=== PATIENT | female | born 1960 | race Caucasian/White ===

== ENCOUNTER 2016-12-06 16:44 | Emergency (ER) | payer MEDICARE, MEDICAID ==
[2016-12-06] MEDS ORDERED: Ondansetron ODT TAB* 4 MG PO ONE (18:13)
[2016-12-06] MEDS ORDERED: NS 0.9% 1000 ML* 1,000 ML IV ONE (18:24)
--- NOTE | 2016-12-06 18:36 | RAD ---
HISTORY: Pain, fall from stool, left wrist and forearm pain COMPARISONS: None VIEWS: 4, Frontal, lateral, and oblique views of the left wrist FINDINGS: BONE DENSITY: There is diffuse osteopenia. BONES: There is a nondisplaced fracture of the distal radial epiphysis with articular extension. JOINTS: There is no arthropathy. ALIGNMENT: There is no dislocation. SOFT TISSUES: Unremarkable. OTHER FINDINGS: None. IMPRESSION: OSTEOPENIA. NONDISPLACED FRACTURE OF THE DISTAL RADIUS WITH ARTICULAR EXTENSION
--- NOTE | 2016-12-06 18:38 | RAD ---
HISTORY: Fall, left forearm pain COMPARISONS: None VIEWS: 4, Frontal, lateral, and oblique views of the left elbow FINDINGS: BONE DENSITY: There is diffuse osteopenia. BONES: There is no displaced fracture. JOINTS: There is mild osteoarthritis of the radial-humeral and ulnar humeral articulations. There is no posterior supracondylar fat pad to suggest a joint effusion. ALIGNMENT: There is no dislocation. SOFT TISSUES: Unremarkable. OTHER FINDINGS: A vascular stent is noted. IMPRESSION: 1. OSTEOPENIA. 2. OSTEOARTHRITIS. 3. NO ACUTE OSSEOUS INJURY. THE DEGREE OF OSTEOPENIA MAY MAKE A NONDISPLACED FRACTURE RADIOGRAPHICALLY OCCULT. IF SYMPTOMS PERSIST, RECOMMEND REPEAT IMAGING.
--- NOTE | 2016-12-06 18:43 | RAD ---
HISTORY: Trauma, left wrist and forearm pain COMPARISONS: August 14, 2009, left wrist dated December 06, 2016 VIEWS: 2, Frontal and lateral views of the left hand FINDINGS: BONE DENSITY: There is diffuse osteopenia. BONES: There is a linear lucency consistent with a nondisplaced fracture of the middle phalanx of the third digit of the left hand . Again noted is a nondisplaced fracture of the distal radius JOINTS: There is no arthropathy. ALIGNMENT: There is no dislocation. SOFT TISSUES: Unremarkable. OTHER FINDINGS: None. IMPRESSION: OSTEOPENIA. PROBABLE NONDISPLACED FRACTURE OF THE MIDDLE PHALANX OF THE THIRD DIGIT OF THE LEFT HAND. RECOMMEND CORRELATION WITH SITE OF PAIN. AGAIN NOTED IS A FRACTURE OF THE DISTAL RADIUS
--- NOTE | 2016-12-06 18:44 | RAD ---
HISTORY: Shortness of breath, cough COMPARISONS: March 16, 2016 VIEWS:1: Single frontal portable view of the chest at 6:23 PM FINDINGS: LINES AND TUBES: None. CARDIOMEDIASTINAL SILHOUETTE: The cardiomediastinal silhouette is normal for portable technique. PLEURA: The costophrenic angles are sharp. No pleural abnormalities are noted. LUNG PARENCHYMA: The lungs are clear. ABDOMEN: The upper abdomen is clear. There is no subphrenic gas. BONES AND SOFT TISSUES: The patient is status post anterior cervical fusion. Surgical clips are noted in the left axilla IMPRESSION: NO ACTIVE CARDIOPULMONARY DISEASE.
[2016-12-06 19:05] LABS: Hematocrit 39 % (35-47); Hemoglobin 12.4 g/dl (12.0-16.0); Mean Corpuscular HGB Conc 32 g/dl (31-36); Mean Corpuscular Hemoglobin 31 pg (27-31); Mean Corpuscular Volume 95 fL (80-97); Mean Platelet Volume 8 um3 (7.4-10.4); Red Blood Count 4.04 10^6/ul (4.0-5.4); Red Cell Distribution Width 15 % (10.5-15); White Blood Count 11.4 10^3/ul (3.5-10.8)
[2016-12-06] MEDS: Morphine INJ* 10 MG/ML 1 ML CARPUJECT IV ONE ×2 (19:10→19:25)
[2016-12-06] MEDS ORDERED: Ondansetron INJ* 2 MG/ML VIAL ONE (19:13)
[2016-12-06 19:15] LABS: ALT 9 U/L (7-52); AST 15 U/L (13-39); Albumin 3.6 g/dL (3.2-5.2); Alkaline Phosphatase 102 U/L (34-104); Anion Gap 9 mmol/L (2-11); Blood Urea Nitrogen 40 mg/dL (6-24); C Reactive Protein 23.27 mg/L (< 5.00); CO2 Carbon Dioxide 21 mmol/L (22-32); Calcium 9.1 mg/dL (8.6-10.3); Chloride 109 mmol/L (101-111); EGFR African American 11.7 (>60); EGFR Non-African American 9.1 (>60); Globulin 3.1 g/dL (2-4); Glucose 99 mg/dL (70-100); Potassium 3.3 mmol/L (3.5-5.0); Sodium 139 mmol/L (133-145); Total Protein 6.7 g/dL (6.4-8.9)
[2016-12-06 19:19] LABS: Acetaminophen < 15 mcg/mL; Alcohol < 10 mg/dL (<10); Salicylate < 2.50 mg/dL (<30)
[2016-12-06] MEDS ORDERED: Ondansetron INJ* 2 MG/ML VIAL IV ONE (19:24)
[2016-12-06] MEDS ORDERED: levETIRAcetam TAB* 500 MG PO ONE (19:26)
[2016-12-06 19:29] LABS: TSH (Thyroid Stimulating Horm) 1.22 mcIU/mL (0.34-5.60)
[2016-12-06] MEDS ORDERED: Potassium Chlor TAB* 20 MEQ TAB.ER PO ONE (19:37)
[2016-12-06 19:40] LABS: Urine Bacteria Absent (Absent); Urine Bilirubin Negative (Negative); Urine Glucose Negative (Negative); Urine Nitrite Positive (Negative)
[2016-12-06 19:51] LABS: Benzodiazepine Urine Screen None Detected (None Detect)
[2016-12-06] MEDS ORDERED: Nitrofurantoin Macrocrystals* 100 MG CAP PO ONE (19:52)
[2016-12-06] MEDS ORDERED: HYDROmorphone INJ* 1 MG/ML CARPUJECT SYRINGE IV SLOW PU ONE (19:59)
--- NOTE | 2016-12-06 20:05 | ED ---
I, Oh,Sohodan, scribed for Reno Marquez MD on 12/06/16 at 1814 . Neurological HPI - HPI Summary HPI Summary: This 55 y/o female presents to ED via EMS after a fall from stool [employer]. Pt states that she was hanging something up the wall, but did not recall the fall. She also reports being noncompliant with her Keppra since 3 days ago, and expresses concern that she might have had an unwitnessed seizure. She does not recall the strength of her keppra. She is currently complaining of LUE forearm pain, which is currently in sling administered by EMS [employer]. PMHx includes HLD, polycystic kidney disease, kidney failure with daily dialysis and LUE fistula, and brain aneurysm. Pt reports that her last dialysis was yesterday. - History of Current Complaint Chief Complaint: EDSeizure Stated Complaint: PAIN IN LT FORE ARM Time Seen by Provider: 12/06/16 17:25 Hx Obtained From: Patient Onset/Duration: Sudden Onset, Still Present Timing: Intermittent Episodes Lasting: Onset Severity: Moderate Current Severity: None Seizure Severity: Moderate Pain Intensity: 10 Pain Scale Used: 0-10 Numeric Character: Unable To Describe - Additional Pertinent History Primary Care Physician: [id number] - Allergy/Home Medications Allergies/Adverse Reactions: Allergies Allergy/AdvReac Type Severity Reaction Status Date / Time Sulfa Drugs Allergy Unknown Unknown Verified 11/12/16 15:29 Reaction Details Fentanyl Allergy STOPPED Verified 11/12/16 15:29 BREATHING NSAIDs AdvReac Severe See Comment Verified 11/12/16 15:29 PMH/Surg Hx/FS Hx/Imm Hx Endocrine/Hematology History: Reports: Hx Thyroid Disease Denies: Hx Diabetes, Hx Systemic Lupus Erythematosus, Other Endocrine/ Hematological Disorders Cardiovascular History: Reports: Hx Aneurysm, Hx Hypercholesterolemia, Hx Hypertension, Hx Valvular Heart Disease - history of Mitral Valve disorder, Other Cardiovascular Problems/Disorders - PT STATES HAS "SOME KIND OF HEART DISEASE" Denies: Hx Congestive Heart Failure, Hx Pacemaker/ICD Respiratory History: Reports: Other Respiratory Problems/Disorders - HX OF TRACHEOSTOMY 01/2013 GI History: Reports: Hx Gall Bladder Disease - gallbladder removed, Other GI Disorders - Polycystic Liver History: Reports: Hx Acute Renal Failure, Hx Chronic Renal Failure, Hx Dialysis, Hx Kidney Infection - HX OF, Hx Kidney Stones, Hx Renal Disease - polycystic kidney disease Comment Only: Other Problems/Disorders - Polycystic Kidney Disease Musculoskeletal History: Reports: Hx Back Problems, Hx Orthopedic Injury - Hx fractured left arm and right leg. Fractured vertebrae, Other Musculoskeletal History - cervical fusion Denies: Hx Arthritis, Hx Rheumatoid Arthritis, Hx Osteoporosis Sensory History: Reports: Hx Contacts or Glasses - GLASSES Denies: Hx Hearing Aid, Other Sensory Impairments Opthamlomology History: Reports: Hx Contacts or Glasses - GLASSES Denies: Other Sensory Impairments Neurological History: Reports: Hx Headaches - OCCASIONAL, Hx Migraine - no longer has migraines, Hx Seizures, Other Neuro Impairments/Disorders - BRAIN ANEURSYM - 2006 Psychiatric History: Reports: Hx Anxiety, Hx Depression - PAST SUICIDE ATTEMPTS , Hx Inpatient Treatment, Hx Suicide Attempt - 06/2015 with [facility] admit, Hx Substance Abuse - 1981 tried cocaine Denies: Hx Eating Disorder, Hx Panic Disorder, Hx of Violent Episodes Against Others, Other Psychiatric Issues/Disorders - Cancer History Hx Chemotherapy: No - iv antibiotic therapy at home Hx Radiation Therapy: No - Surgical History Surgery Procedure, Year, and Place: 2006 BRAIN ANEURSYM [facility].5 PER [facility]. 2011 ORIF LEFT ELBOW- [facility]. 1994 RIGHT LEG/ANKLE FX [facility]. 01/2013 REMOVAL OF HARDWARE LEFT ELBOW ; [facility]. PD [facility] DIALYSIS 06/2016. 1994 BLADDER SLING [facility]. 2003, 2005 LIVER CYST REMOVAL [facility]. 1969 APPENDECTOMY, [facility]. TONSILLECTOMY A CHILD [facility]. 1991 LAP PAIGE [facility] 2006 KIDNEY STONES [facility]. 2006 R OOPHERECTOMY [place]. 1999 ACDF [facility]. 01/2013 TRACHEOSTOMY, [facility]. 2014 CYSTO, LITHO [facility]. 2013 L ARM FISTULA X3 [facility] Hx Anesthesia Reactions: No Infectious Disease History: Yes Infectious Disease History: Reports: Hx of Known/Suspected MRSA - lungs - 13 yrs ago Denies: History Other Infectious Disease, Traveled Outside the [place] in Last 30 Days - Family History Known Family History: Positive: Renal Disease - polycystic kidney - Social History Alcohol Use: None Hx Substance Use: Yes Substance Use Type: Reports: Other Substance Use Comment - Amount & Last Used: HX ETOH AND DRUG ABUSE, takes morphine and oxycodone, overdose 06/2015 Hx Tobacco Use: Yes Smoking Status (MU): Current Some Day Smoker Type: Cigarettes Amount Used/How Often: VERY RARELY Length of Time of Smoking/Using Tobacco: 15 YRS Have You Smoked in the Last Year: Yes Review of Systems Negative: Fever Neurological: Other - possible, unwitnessed seizure Negative: Anxious, Depressed All Other Systems Reviewed And Are Negative: Yes Physical Exam - Summary Physical Exam Summary: VITAL SIGNS: Reviewed. GENERAL: Patient is a well developed and nourished female with acute distress secondary to pain. Patient is not in any acute respiratory distress. HEAD AND FACE: No signs of trauma. No ecchymosis, hematomas or skull depressions. No sinus tenderness. EYES: PERRLA, EOMI x 2, No injected conjunctiva, no nystagmus. No photophobia. EARS: Hearing grossly intact. Ear canals and tympanic membranes are within normal limits. MOUTH: Oropharynx within normal limits. NECK: Supple, trachea is midline, no adenopathy, no JVD, no carotid bruit, no c- spine tenderness, neck with full ROM. No meningeal signs, no Kernig's or brudzinskis signs. CHEST: Symmetric, no tenderness at palpation LUNGS: Clear to auscultation bilaterally. No wheezing or crackles. CVS: Regular rate and rhythm, S1 and S2 present, no murmurs or gallops appreciated. ABDOMEN: Soft, non-tender. No signs of distention. No rebound no guarding, and no masses palpated. Bowel sounds are normal. EXTREMITIES: decreased ROM in left elbow and left forearm secondary to pain NEURO: Alert and oriented x 3. No acute neurological deficits. Speech is normal and follows commands. SKIN: Dry and warm Triage Information Reviewed: Yes Vital Signs On Initial Exam: Initial Vitals Temp Pulse Resp BP Pulse Ox 99.2 F 120 18 153/68 99 12/06/16 17:07 12/06/16 17:07 12/06/16 17:07 12/06/16 17:07 12/06/16 17:07 Vital Signs Reviewed: Yes Diagnostics - Vital Signs Vital Signs Temp Pulse Resp BP Pulse Ox 12/06/16 17:07 99.2 F 120 18 153/68 99 - Laboratory Lab Results: Lab Results 12/06/16 12/06/16 12/06/16 Range/Units 18:50 18:50 19:29 WBC 11.4 H (3.5-10.8) 10^3/ul RBC 4.04 (4.0-5.4) 10^6/ul Hgb 12.4 (12.0-16.0) g/dl Hct 39 (35-47) % MCV 95 (80-97) fL MCH 31 (27-31) pg MCHC 32 (31-36) g/dl RDW 15 (10.5-15) % Plt Count 333 (150-450) 10^3/ul MPV 8 (7.4-10.4) um3 Neut % (Auto) 78.9 (38-83) % Lymph % (Auto) 14.1 L (25-47) % Robeson % (Auto) 5.8 (1-9) % Eos % (Auto) 0.3 (0-6) % Baso % (Auto) 0.9 (0-2) % Absolute Neuts (auto) 9.0 H (1.5-7.7) 10^3/ul Absolute Lymphs (auto) 1.6 (1.0-4.8) 10^3/ul Absolute Monos (auto) 0.7 (0-0.8) 10^3/ul Absolute Eos (auto) 0 (0-0.6) 10^3/ul Absolute Basos (auto) 0.1 (0-0.2) 10^3/ul Absolute Nucleated RBC 0 10^3/ul Nucleated RBC % 0 Sodium 139 (133-145) mmol/L Potassium 3.3 L (3.5-5.0) mmol/L Chloride 109 (101-111) mmol/L Carbon Dioxide 21 L (22-32) mmol/L Anion Gap 9 (2-11) mmol/L BUN 40 H (6-24) mg/dL Creatinine 4.98 H (0.51-0.95) mg/dL Est GFR ( Amer) 11.7 (>60) Est GFR (Non-Af Amer) 9.1 (>60) BUN/Creatinine Ratio 8.0 (8-20) Glucose 99 (70-100) mg/dL Calcium 9.1 (8.6-10.3) mg/dL Total Bilirubin 0.30 (0.2-1.0) mg/dL AST 15 (13-39) U/L ALT 9 (7-52) U/L Alkaline Phosphatase 102 (34-104) U/L C-Reactive Protein 23.27 H (< 5.00) mg/L Total Protein 6.7 (6.4-8.9) g/dL Albumin 3.6 (3.2-5.2) g/dL Globulin 3.1 (2-4) g/dL Albumin/Globulin Ratio 1.2 (1-3) TSH 1.22 (0.34-5.60) mcIU/mL Urine Color Yellow Urine Appearance Cloudy Urine pH 6.0 (5-9) Ur Specific Stringer 1.011 (1.010-1.030) Urine Protein 1+(30 mg/dl) H (Negative) Urine Ketones Negative (Negative) Urine Blood 1+ H (Negative) Urine Nitrate Positive H (Negative) Urine Bilirubin Negative (Negative) Urine Urobilinogen Negative (Negative) Ur Leukocyte Esterase 3+ H (Negative) Urine WBC (Auto) 3+(>20/hpf) H (Absent) Urine RBC (Auto) 1+(3-5/hpf) H (Absent) Ur Squamous Epith Cells Present H (Absent) Urine Bacteria Absent (Absent) Urine Glucose Negative (Negative) Salicylates < 2.50 (<30) mg/dL Urine Opiates Screen (None Detect) Acetaminophen < 15 mcg/mL Ur Barbiturates Screen (None Detect) Ur Phencyclidine Scrn (None Detect) Ur Amphetamines Screen (None Detect) U Benzodiazepines Scrn (None Detect) Urine Cocaine Screen (None Detect) U Cannabinoids Screen (None Detect) Serum Alcohol < 10 (<10) mg/dL 12/06/16 Range/Units 19:29 WBC (3.5-10.8) 10^3/ul RBC (4.0-5.4) 10^6/ul Hgb (12.0-16.0) g/dl Hct (35-47) % MCV (80-97) fL MCH (27-31) pg MCHC (31-36) g/dl RDW (10.5-15) % Plt Count (150-450) 10^3/ul MPV (7.4-10.4) um3 Neut % (Auto) (38-83) % Lymph % (Auto) (25-47) % Robeson % (Auto) (1-9) % Eos % (Auto) (0-6) % Baso % (Auto) (0-2) % Absolute Neuts (auto) (1.5-7.7) 10^3/ul Absolute Lymphs (auto) (1.0-4.8) 10^3/ul Absolute Monos (auto) (0-0.8) 10^3/ul Absolute Eos (auto) (0-0.6) 10^3/ul Absolute Basos (auto) (0-0.2) 10^3/ul Absolute Nucleated RBC 10^3/ul Nucleated RBC % Sodium (133-145) mmol/L Potassium (3.5-5.0) mmol/L Chloride (101-111) mmol/L Carbon Dioxide (22-32) mmol/L Anion Gap (2-11) mmol/L BUN (6-24) mg/dL Creatinine (0.51-0.95) mg/dL Est GFR ( Amer) (>60) Est GFR (Non-Af Amer) (>60) BUN/Creatinine Ratio (8-20) Glucose (70-100) mg/dL Calcium (8.6-10.3) mg/dL Total Bilirubin (0.2-1.0) mg/dL AST (13-39) U/L ALT (7-52) U/L Alkaline Phosphatase (34-104) U/L C-Reactive Protein (< 5.00) mg/L Total Protein (6.4-8.9) g/dL Albumin (3.2-5.2) g/dL Globulin (2-4) g/dL Albumin/Globulin Ratio (1-3) TSH (0.34-5.60) mcIU/mL Urine Color Urine Appearance Urine pH (5-9) Ur Specific Stringer (1.010-1.030) Urine Protein (Negative) Urine Ketones (Negative) Urine Blood (Negative) Urine Nitrate (Negative) Urine Bilirubin (Negative) Urine Urobilinogen (Negative) Ur Leukocyte Esterase (Negative) Urine WBC (Auto) (Absent) Urine RBC (Auto) (Absent) Ur Squamous Epith Cells (Absent) Urine Bacteria (Absent) Urine Glucose (Negative) Salicylates (<30) mg/dL Urine Opiates Screen None detected (None Detect) Acetaminophen mcg/mL Ur Barbiturates Screen None detected (None Detect) Ur Phencyclidine Scrn None detected (None Detect) Ur Amphetamines Screen None detected (None Detect) U Benzodiazepines Scrn None detected (None Detect) Urine Cocaine Screen None detected (None Detect) U Cannabinoids Screen None detected (None Detect) Serum Alcohol (<10) mg/dL Result Diagrams: 12/06/16 18:50 12/06/16 18:50 Lab Statement: Any lab studies that have been ordered have been reviewed, and results considered in the medical decision making process. - Radiology L Wrist Xray Interpretation: Positive (See Comments) - OSTEOPENIA. NONDISPLACED FRACTURE OF THE DISTAL RADIUS WITH ARTICULAR EXTENSION Radiology Interpretation Completed By: Radiologist L Elbow Xray Interpretation: No Acute Changes - 1. OSTEOPENIA. 2. OSTEOARTHRITIS. 3. NO ACUTE OSSEOUS INJURY. THE DEGREE OF OSTEOPENIA MAY MAKE A NONDISPLACED FRACTURE RADIOGRAPHICALLY OCCULT. IF SYMPTOMS PERSIST, RECOMMEND REPEAT IMAGING. Radiology Interpretation Completed By: Radiologist L Hand Xray Interpretation: Positive (See Comments) - OSTEOPENIA. PROBABLE NONDISPLACED FRACTURE OF THE MIDDLE PHALANX OF THE THIRD DIGIT OF THE LEFT HAND. RECOMMEND CORRELATION WITH SITE OF PAIN. AGAIN NOTED IS A FRACTURE OF THE DISTAL RADIUS Radiology Interpretation Completed By: Radiologist CXR Xray Interpretation: No Acute Changes - NO ACTIVE CARDIOPULMONARY DISEASE. Radiology Interpretation Completed By: Radiologist Course/Dx - Course Assessment/Plan: This 55 y/o female presents to ED via EMS after a fall from stool [employer]. Pt states that she was hanging something up the wall, but did not recall the fall. She thinks she had a seizure since she has not been taking her medication for seizures. She does not know why she has not been taking her medications. She has no other complaints. Son called and stated that she had some suicidal ideation a couple days ago. Patient denied such allegations. She reports she has no suicidal ideations. Blood work at her baseline. L Wrist. Xray Interpretation: Positive (See Comments) - OSTEOPENIA. NONDISPLACED FRACTURE OF THE DISTAL RADIUS WITH ARTICULAR EXTENSION. Radiology Interpretation Completed By: Radiologist. L Elbow. Xray Interpretation: No Acute Changes - 1. OSTEOPENIA. 2. OSTEOARTHRITIS. 3. NO ACUTE OSSEOUS INJURY. THE DEGREE OF OSTEOPENIA MAY MAKE A NONDISPLACED FRACTURE RADIOGRAPHICALLY OCCULT. IF SYMPTOMS PERSIST, RECOMMEND REPEAT IMAGING. Radiology Interpretation Completed By: Radiologist. L Hand. Xray Interpretation: Positive (See Comments) - OSTEOPENIA. PROBABLE NONDISPLACED FRACTURE OF THE MIDDLE PHALANX OF THE THIRD DIGIT OF THE LEFT HAND. RECOMMEND CORRELATION WITH SITE OF PAIN. AGAIN NOTED IS A FRACTURE OF THE DISTAL RADIUS. Radiology Interpretation Completed By: Radiologist. CXR. Xray Interpretation: No Acute Changes - NO ACTIVE CARDIOPULMONARY DISEASE. Radiology Interpretation Completed By: Radiologist. An splint was placed with no complications. After splint she is still neurovascular intact. Splint was also placed in the left middle finger. She was Keppra for her seizures and recommends to be compliant to her medications/. She was given Nitrofurantoin for UTI. She was given morphine and Dilaudid for pain. I discussed all my findings and test results with the patient. Patient understands and agrees. Patient was instructed to return to the emergency room immediately if any of the symptoms return or worsens. Patient understands and agrees. Plan of care was discussed with the patient and patient understands and agrees with the plan of care. All questions were answered at patient satisfaction. There were no further complaints or concerns. Patient was instructed to follow up with primary care physician within 3 to 5 days. Patient is hemodynamically stable. Patient is alert and oriented x 3. No acute neurological deficits. She will also f/u with Orthopedics. - Diagnoses Provider Diagnoses: Seizure, Distal radius fracture, left, CRF (chronic renal failure), UTI ( urinary tract infection) Discharge - Discharge Plan Condition: Stable Disposition: HOME Prescriptions: Nitrofurantoin Macrocrystals* [Macrodantin*] 100 mg PO BID #20 cap Patient Education Materials: Nitrofurantoin Macrocrystals (By mouth), Wrist Fracture in Adults (ED), Urinary Tract Infection in Women (ED), Recurrent Seizures in Adults (ED) Referrals: Dimitry Oleary MD [Primary Care Provider] - 2 Days The documentation as recorded by the Munir hernandez Soohyun accurately reflects the service I personally performed and the decisions made by , Reno Marquez MD. Addendum entered and electronically signed by Elisabeth Jeffrey PA 12/08/16 08: 17: ED Addendum Addendum: Preliminary urine culture E.coli >100,000. Patient started on macrobid. Will await final c/s to determine further course of care.
[2016-12-06] MEDS ORDERED: Ciprofloxacin TAB* 500 MG PO ONE (21:21)
[2016-12-06 21:38] VITALS: BP 154/99
--- NOTE | 2016-12-09 08:54 | ED ---
Progress - Progress Note Progress Note: Pt's urine c&s reveals ESBL E. coli. She was initially provided with macrobib however reported she couldn't take this so was switched to cipro. Pt reports cipro was not received at the pharmacy and so she hasn't started this yet. Her sens today reveals the organism is resistant to many antibiotivs including cipro. Will start doxycycline to which organims appears to be sensitive. This will keep her from taking an antibiotic cleared through renal function as she's on dialysis w/ ESRF. E-rx'd to [facility]. Pt adivsed to f/u w/ PCP re: UTI. NOTE: She has an appt tomorrow to f/u w/ ortho for an UE injury. Course/Dx - Diagnoses Provider Diagnoses: Seizure, Distal radius fracture, left, CRF (chronic renal failure), UTI ( urinary tract infection)
== END 2016-12-06 21:37 | disposition home or self-care (01) ==
LOC: ED 16:44
DX: S52.502A Unspecified fracture of the lower end of left radius, initial encounter for closed fracture (principal); N18.9 Chronic kidney disease, unspecified; N39.0 Urinary tract infection, site not specified; F17.210 Nicotine dependence, cigarettes, uncomplicated; E78.00 Pure hypercholesterolemia, unspecified; I10 Essential (primary) hypertension; E78.5 Hyperlipidemia, unspecified; Q61.3 Polycystic kidney, unspecified; Z99.2 Dependence on renal dialysis; Z88.2 Allergy status to sulfonamides; E07.9 Disorder of thyroid, unspecified; Z91.19 Patient's noncompliance with other medical treatment and regimen; G40.909 Epilepsy, unspecified, not intractable, without status epilepticus; W07.XXXA Fall from chair, initial encounter; Y92.9 Unspecified place or not applicable
CPT/HCPCS: 36415; 71010; 80053; 80307; 80320; 80329; 81003; 81015; 84443; 85025; 86140; 87077; 87086; 87186; 96374; 96375; 99284; A9270-GY; G0480; J1170; J2270; J2405

== ENCOUNTER 2017-03-15 19:28 | Emergency (ER) | payer MEDICARE, MEDICAID ==
[2017-03-15] MEDS ORDERED: Ondansetron INJ* 2 MG/ML VIAL IV ONE (19:38)
[2017-03-15] MEDS ORDERED: NS 0.9% 1000 ML* 1,000 ML IV ONE (19:38)
[2017-03-15] MEDS ORDERED: Morphine INJ* 4 MG/ML 1 ML SYRINGE IV ONE ×2 (19:38→21:23)
--- NOTE | 2017-03-15 20:24 | ED ---
I, Oh,Soohwilmanun, scribed for Genaro Chavez MD on 03/15/17 at 1943 . Abdominal Pain/Female - HPI Summary HPI Summary: This 56 y/o female presents to ED via [facility] with chief complaint of constant RLQ abd pain since last night. Pt reports chest pain, dyspnea, PACE, and increased burping. She also expresses concerns about yellow stool, and requesting stool culture. PMHx is significant for polycystic kidney dz, kidney failure with ongoing dialysis, HLD, HTN, and brain aneurysm s/p clipping. 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 Primary care involves Dr. Oleary. 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 - History of Current Complaint Stated Complaint: ABD PAIN Hx Obtained From: Patient, Medical Records Onset/Duration: Sudden Onset, Lasting Days, Still Present Timing: Constant Location: Discrete At: RLQ Radiates: No Character: Dull Aggravating Factor(s): Nothing Alleviating Factor(s): Nothing Associated Signs and Symptoms: Positive: Chest Pain, Other: - dyspnea Allergies/Adverse Reactions: Allergies Allergy/AdvReac Type Severity Reaction Status Date / Time Sulfa Drugs Allergy Unknown Unknown Verified 02/08/17 14:32 Reaction Details Fentanyl Allergy STOPPED Verified 02/08/17 14:32 BREATHING NSAIDs AdvReac Severe See Comment Verified 02/08/17 14:32 PMH/Surg Hx/FS Hx/Imm Hx Endocrine/Hematology History: Reports: Hx Thyroid Disease Denies: Hx Diabetes, Hx Systemic Lupus Erythematosus, Other Endocrine/ Hematological Disorders Cardiovascular History: Reports: Hx Aneurysm, Hx Hypercholesterolemia, Hx Hypertension, Hx Valvular Heart Disease - history of Mitral Valve disorder, Other Cardiovascular Problems/Disorders - PT STATES HAS "SOME KIND OF HEART DISEASE" Denies: Hx Congestive Heart Failure, Hx Pacemaker/ICD Respiratory History: Reports: Other Respiratory Problems/Disorders - HX OF TRACHEOSTOMY 01/2013 GI History: Reports: Hx Gall Bladder Disease - gallbladder removed, Other GI Disorders - Polycystic Liver History: Reports: Hx Acute Renal Failure, Hx Chronic Renal Failure, Hx Dialysis, Hx Kidney Infection - HX OF, Hx Kidney Stones, Hx Renal Disease - polycystic kidney disease Comment Only: Other Problems/Disorders - Polycystic Kidney Disease Musculoskeletal History: Reports: Hx Back Problems, Hx Orthopedic Injury - Hx fractured left arm and right leg. Fractured vertebrae, Other Musculoskeletal History - cervical fusion Denies: Hx Arthritis, Hx Rheumatoid Arthritis, Hx Osteoporosis Sensory History: Reports: Hx Contacts or Glasses - GLASSES Denies: Hx Hearing Aid, Other Sensory Impairments Opthamlomology History: Reports: Hx Contacts or Glasses - GLASSES Denies: Other Sensory Impairments Neurological History: Reports: Hx Headaches - OCCASIONAL, Hx Migraine - no longer has migraines, Hx Seizures, Other Neuro Impairments/Disorders - BRAIN ANEURSYM - 2006 Psychiatric History: Reports: Hx Anxiety, Hx Depression - PAST SUICIDE ATTEMPTS , Hx Inpatient Treatment, Hx Suicide Attempt - 06/2015 with [facility] admit, Hx Substance Abuse - 1981 tried cocaine Denies: Hx Eating Disorder, Hx Panic Disorder, Hx of Violent Episodes Against Others, Other Psychiatric Issues/Disorders - Cancer History Hx Chemotherapy: No - iv antibiotic therapy at home Hx Radiation Therapy: No - Surgical History Surgery Procedure, Year, and Place: 2006 BRAIN ANEURSYM REPAIRED/CRANIOTOMY [facility] ANEURYSM CLIP OK FOR 1.5 PER SAFETY [place]. 2011 ORIF LEFT ELBOW- [place]. 1994 RIGHT LEG/ANKLE FX [facility]. 01/2013 REMOVAL OF HARDWARE LEFT ELBOW ; [facility]. PD [facility]TAR FOR DIALYSIS 06/2016. 1994 BLADDER SLING [facility]. 2003, 2005 LIVER CYST REMOVAL [facility]. 1969 APPENDECTOMY, [facility]. TONSILLECTOMY A CHILD [facility]. 1991 LAP PAIGE [facility]. 2006 KIDNEY STONES [facility]. 2006 R OOPHERECTOMY [place]. 1999 ANTEROIR CERVICAL DISC FUSION [facility]. 01/2013 TRACHEOSTOMY, [facility] ( CLOSED PRESENTLY-2016). 2013 CYSTO, LITHO [facility]. 2012 L ARM FISTULA X3 [facility] Hx Anesthesia Reactions: No Infectious Disease History: Reports: Hx of Known/Suspected MRSA - lungs - 13 yrs ago Denies: History Other Infectious Disease - Family History Known Family History: Positive: Renal Disease - polycystic kidney - Social History Alcohol Use: None Hx Substance Use: Yes Substance Use Type: Reports: Other Substance Use Comment - Amount & Last Used: HX ETOH AND DRUG ABUSE, takes morphine and oxycodone, overdose 06/2015 Hx Tobacco Use: Yes Smoking Status (MU): Current Some Day Smoker Type: Cigarettes Amount Used/How Often: VERY RARELY Length of Time of Smoking/Using Tobacco: 15 YRS Have You Smoked in the Last Year: Yes Review of Systems Negative: Fever Positive: Chest Pain Positive: Other - dyspnea Positive: Abdominal Pain - RLQ pain, Other - increased burping. Concerns over yellow stool Positive: Headache All Other Systems Reviewed And Are Negative: Yes Physical Exam Triage Information Reviewed: Yes Vital Signs On Initial Exam: Initial Vitals Temp Pulse Resp BP Pulse Ox 99.7 F 80 18 126/71 100 03/15/17 19:31 03/15/17 19:31 03/15/17 19:31 03/15/17 19:31 03/15/17 19:31 Vital Signs Reviewed: Yes Appearance: Positive: Well-Appearing, Pain Distress - MILD DISCOMFORT Skin: Positive: Warm Head/Face: Positive: Normal Head/Face Inspection. Negative: Temporal Artery Tenderness Eyes: Positive: EOMI, NELLA ENT: Positive: Hearing grossly normal Neck: Positive: Supple Respiratory/Lung Sounds: Positive: Clear to Auscultation, Breath Sounds Present Cardiovascular: Positive: RRR Abdomen Description: Positive: Nontender, Soft. Negative: CVA Tenderness (R), CVA Tenderness (L) Bowel Sounds: Positive: Present Musculoskeletal: Positive: Strength/ROM Intact Neurological: Positive: Sensory/Motor Intact, Alert, Oriented to Person Place, Time, Normal Gait Psychiatric: Positive: Affect/Mood Appropriate Diagnostics - Vital Signs Vital Signs Temp Pulse Resp BP Pulse Ox 03/15/17 20:19 16 03/15/17 19:31 99.7 F 80 18 126/71 100 - Laboratory Result Diagrams: 03/15/17 20:12 03/15/17 20:12 Lab Statement: Any lab studies that have been ordered have been reviewed, and results considered in the medical decision making process. - CT Ab/P CT Interpretation: No Acute Changes - 1. No acute CT findings. No mass or inflammatory change. 2. Numerous hepatic cysts, unchanged. The findings are compatible with polycystic kidney disease. 3. Enlarged kidneys with numerous cysts consistent with polycystic cystic kidney disease, unchanged. 4. Peritoneal dialysis catheter 5. Moderate retained stool CT Interpretation Completed By: Radiologist Brain CT Interpretation: No Acute Changes - NO ACUTE INTRACRANIAL FINDINGS. POSTSURGICAL CHANGE WITH HISTORY OF OF PRIOR RIGHT-SIDED ANEURYSM CLIPPING CT Interpretation Completed By: Radiologist - EKG 2003 Cardiac Rate: Bradycardia - 58 bpm EKG Rhythm: Sinus Bradycardia Re-Evaluation - Re-Evaluation First Eval Change: Improved - RESULTS D/W PT Abdominal Pain Fem Course/Dx - Diagnoses Provider Diagnoses: Abdominal pain, Headache Discharge - Discharge Plan Condition: Stable Disposition: HOME Patient Education Materials: Abdominal Pain (ED), General Headache (ED) Referrals: Dimitry Oleary MD [Primary Care Provider] - 2 Days The documentation as recorded by the Munir hernandez Soohyun accurately reflects the service I personally performed and the decisions made by me, Genaro Chavez MD.
[2017-03-15 20:33] LABS: Hematocrit 37 % (35-47); Hemoglobin 12.3 g/dl (12.0-16.0); Mean Corpuscular HGB Conc 33 g/dl (31-36); Mean Corpuscular Hemoglobin 31 pg (27-31); Mean Corpuscular Volume 93 fL (80-97); Mean Platelet Volume 8 um3 (7.4-10.4); Red Blood Count 3.97 10^6/ul (4.0-5.4); Red Cell Distribution Width 14 % (10.5-15); White Blood Count 9.2 10^3/ul (3.5-10.8)
[2017-03-15 20:56] LABS: BUN/Creatinine Ratio 8.4 (8-20); C Reactive Protein 38.54 mg/L (< 5.00); Calcium 8.6 mg/dL (8.6-10.3); EGFR Non-African American 10.1 (>60); Globulin 3.1 g/dL (2-4); Magnesium 1.9 mg/dL (1.9-2.7); Total Bilirubin 0.3 mg/dL (0.2-1.0); Total Protein 6.1 g/dL (6.4-8.9)
[2017-03-15] MEDS ORDERED: Iodixanol* (CONTRAST) 320 MG/ML 100 ML SDV IV ONE (21:19)
[2017-03-15 21:38] LABS: Urine Bacteria Absent (Absent); Urine Bilirubin Negative (Negative); Urine Glucose Negative (Negative); Urine Nitrite Negative (Negative)
--- NOTE | 2017-03-15 22:23 | RAD ---
INDICATION: Headaches. History of aneurysm COMPARISON: July 09, 2015 TECHNIQUE: Noncontrast axial source images were acquired from the skull base to the vertex. FINDINGS: Ventricles/sulci: The ventricles and cisterns are normal in size and configuration for age. Brain parenchyma: There is no acute focal parenchymal finding, evidence of intracranial mass, or intracranial mass effect. There are clips in the right middle cranial fossa secondary to aneurysm clipping Intracranial hemorrhage:None. Extra-axial spaces: There are no abnormal extra axial fluid collections or evidence of extra-axial mass. Calvarium: Right frontotemporal craniotomy defect, unchanged. Scalp: There is no evidence of scalp or extracalvarial soft tissue abnormality. Paranasal sinuses/mastoid: The paranasal sinuses and mastoid air cells are clear. Other: None. IMPRESSION: NO ACUTE INTRACRANIAL FINDINGS. POSTSURGICAL CHANGE WITH HISTORY OF OF PRIOR RIGHT-SIDED ANEURYSM CLIPPING
--- NOTE | 2017-03-15 22:29 | RAD ---
INDICATION: Abdominal pain COMPARISON: CT abdomen pelvis November 12, 2016 TECHNIQUE: Axial source images were obtained from the hemidiaphragms to the symphysis pubis following administration of oral and intravenous contrast. 70 mL Omnipaque 300 was utilized. Coronal and sagittal reconstructed images were acquired. Lung bases: There is mild bibasilar atelectasis.. Liver: The liver is normal in size. There are too numerous to count hepatic cysts. Several of the cysts contain peripheral calcifications. The appearance unchanged There is no ductal dilatation. Gallbladder: Cholecystectomy. Spleen: The spleen is normal in size. There are no masses. Pancreas: There is no focal pancreatic mass. There is minor prominence of the pancreatic duct, unchanged. Adrenal glands: There is no evidence of adrenal mass. Kidneys: The kidneys are enlarged and there are numerous cysts. 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 Adenopathy: There is no evidence of adenopathy by size criteria. Fluid collections: There are no free or localized fluid collections. Vessels:There are no significant atherosclerotic changes involving the aorta. There is no focal aneurysm. The iliac vessels are normal in caliber. The IVC appears normal. GI tract: The upper GI tract is unremarkable. There is moderate stool in the right and transverse colon without findings of obstruction. Pelvic organs: The uterus and adnexa appear normal Bladder: There are no bladder masses. Abdominal and pelvic soft tissues: There is a peritoneal dialysis catheter. Osseous structures: There are no acute osseous findings. Other: None IMPRESSION: 1. No acute CT findings. No mass or inflammatory change. 2. Numerous hepatic cysts, unchanged. The findings are compatible with polycystic kidney disease. 3. Enlarged kidneys with numerous cysts consistent with polycystic cystic kidney disease, unchanged. 4. Peritoneal dialysis catheter 5. Moderate retained stool.
[2017-03-15 23:02] VITALS: BP 133/53
--- NOTE | 2017-03-17 07:16 | PN ---
Progress Note - Progress Note Note: Patient urine culture grew E coli 50-75,000. spoke with patient and is having UTI symptoms. Due to kidney issues and allergic to bactrim will treat with augmentin 500mg bid for 7 days.
== END 2017-03-15 23:04 | disposition home or self-care (01) ==
LOC: ED 19:28
DX: R10.31 Right lower quadrant pain (principal); R51 Headache; F17.210 Nicotine dependence, cigarettes, uncomplicated; Q61.3 Polycystic kidney, unspecified; I10 Essential (primary) hypertension; Z99.2 Dependence on renal dialysis; E78.5 Hyperlipidemia, unspecified; Z88.2 Allergy status to sulfonamides
CPT/HCPCS: 36415; 70450; 74177; 80053; 81003; 81015; 83605; 83690; 83735; 83880; 84484; 85025; 86140; 87077; 87086; 87186; 93005; 96360; 96374; 96375; 99283; J2270; J2405; Q9967

== ENCOUNTER 2017-04-24 08:55 | Emergency (ER) | payer MEDICARE, MEDICAID ==
[2017-04-24] MEDS ORDERED: NS 0.9% 1000 ML* 1,000 ML IV ONE (09:00)
[2017-04-24 09:01] VITALS: BP 109/63
[2017-04-24] MEDS ORDERED: Morphine INJ* 10 MG/ML 1 ML SYRINGE IV ONE (09:09)
[2017-04-24 09:20] LABS: Hematocrit 40 % (35-47); Hemoglobin 12.8 g/dl (12.0-16.0); Mean Corpuscular HGB Conc 32 g/dl (31-36); Mean Corpuscular Hemoglobin 30 pg (27-31); Mean Corpuscular Volume 92 fL (80-97); Mean Platelet Volume 8 um3 (7.4-10.4); Red Blood Count 4.34 10^6/ul (4.0-5.4); Red Cell Distribution Width 15 % (10.5-15); White Blood Count 12.4 10^3/ul (3.5-10.8)
[2017-04-24 09:36] LABS: Albumin 3.5 g/dL (3.2-5.2); BUN/Creatinine Ratio 10.9 (8-20); C Reactive Protein 33.65 mg/L (< 5.00); Calcium 8.4 mg/dL (8.6-10.3); EGFR African American 9.3 (>60); EGFR Non-African American 7.2 (>60); Globulin 3.7 g/dL (2-4); Potassium 3.5 mmol/L (3.5-5.0); Total Bilirubin 0.3 mg/dL (0.2-1.0); Total Protein 7.2 g/dL (6.4-8.9)
--- NOTE | 2017-04-24 09:51 | RAD ---
CLINICAL HISTORY: Bloody urine, flank pain COMPARISON: March 15, 2017 TECHNIQUE: Multiple contiguous axial CT scans were obtained of the abdomen and pelvis, without intravenous contrast enhancement. Coronal and sagittal multiplanar reformations are submitted for review. Oral contrast was not administered. FINDINGS: The study is limited by the lack of intravenous contrast. This limits evaluation of the solid organs and vasculature. LUNG BASES: The lung bases are clear. LIVER: Again noted are unremarkable without appreciable cysts throughout the liver, essentially replacing the left lobe of liver. Surgical clips are scattered calcification is noted within the right lobe of liver. This is stable. BILE DUCTS: There is dilatation of the common duct up to 1.3 cm. This can be identified on the previous examination and is stable. There is no intrahepatic biliary dilatation. GALLBLADDER: The gallbladder is not visualized. Surgical clips are noted in the gallbladder fossa. PANCREAS: The pancreas is normal, without mass or ductal dilatation. SPLEEN: Normal in size and appearance. UPPER GI TRACT: Evaluation of the gastrointestinal tract is limited by incomplete gastric distention. The upper GI tract is unremarkable. SMALL BOWEL AND MESENTERY: The small bowel is normal in contour, course, and caliber. There is no obstruction or dilatation. COLON: The colon is normal in contour, course, caliber. There is no pericolonic inflammatory change. ADRENALS: Normal bilaterally. KIDNEYS: There is replacement of the renal parenchyma bilaterally by innumerable cysts, of varying complexity. There are multiple renal calcifications, which may be parenchymal or within the renal collecting system. Evaluation is limited secondary to the cystic replacement of the renal parenchyma.. There is no appreciable hydronephrosis BLADDER: The bladder is collapsed and is not well evaluated. PELVIC ORGANS: The uterus and adnexa are grossly normal for technique. AORTA: The aorta is normal. IVC: Unremarkable LYMPH NODES: There is no lymphadenopathy by size criteria. ABDOMINAL WALL: A peritoneal dialysis catheter is noted. BONES AND SOFT TISSUES: There are mild diffuse degenerative changes. OTHER: There is a small amount of free fluid within the pelvis IMPRESSION: 1. AGAIN NOTED ARE INNUMERABLE HEPATIC PARENCHYMAL AND RENAL PARENCHYMAL CYSTS, CONSISTENT WITH A AUTOSOMAL DOMINANT POLYCYSTIC KIDNEY DISEASE. 2. THERE ARE MULTIPLE RENAL CALCIFICATIONS WHICH MAY BE PARENCHYMAL OR WITHIN THE COLLECTING SYSTEM, EVALUATION IS LIMITED BY THE CYSTIC REPLACEMENT OF THE RENAL PARENCHYMA. THERE IS NO APPRECIABLE HYDRONEPHROSIS. 3. A PERITONEAL DIALYSIS CATHETER IS NOTED WITH A SMALL AMOUNT OF FREE FLUID WITHIN THE PELVIS. 4. STATUS POST CHOLECYSTECTOMY WITHOUT DUCTAL ECTASIA
[2017-04-24] MEDS ORDERED: HYDROmorphone* 1 MG/ML 1 ML SYR IV SLOW PU ONE (10:52)
[2017-04-24 11:08] LABS: Urine Bacteria 2+ (Absent); Urine Bilirubin Negative (Negative); Urine Glucose Negative (Negative); Urine Nitrite Negative (Negative)
--- NOTE | 2017-04-24 15:53 | ED ---
Moncho Jones Billy, scribed for Reno Marquez MD on 04/24/17 at 0914 . GI/ HPI - HPI Summary HPI Summary: Patient is a 56 year-old female coming to [facility] for evaluation of right flank pain since yesterday morning, worse since last night. She reports 10/10 pain, non-radiating from the right flank. Denies any fevers or chills. Denies N/V/D or constipation. She reports hematuria. The patient sees Dr. Oleary (PCP). - History of Current Complaint Chief Complaint: EDFlankPain Time Seen by Provider: 04/24/17 08:56 Stated Complaint: BLOOD U URINE, PAIN Hx Obtained From: Patient Onset/Duration: Started Days Ago Timing: Constant Severity: Moderate Current Severity: Moderate Pain Intensity: 10 Location of Pain: Flank Associated Signs and Symptoms: Positive: Hematuria. Negative: Nausea, Vomiting , Diarrhea, Fever, Chills Aggravating Factor(s): Nothing Alleviating Factor(s): Nothing - Additional Pertinent History Primary Care Physician: [id number] - Allergy/Home Medications Allergies/Adverse Reactions: Allergies Allergy/AdvReac Type Severity Reaction Status Date / Time Sulfa Drugs Allergy Unknown Unknown Verified 02/08/17 14:32 Reaction Details Fentanyl Allergy STOPPED Verified 02/08/17 14:32 BREATHING NSAIDs AdvReac Severe See Comment Verified 02/08/17 14:32 PMH/Surg Hx/FS Hx/Imm Hx Endocrine/Hematology History: Reports: Hx Thyroid Disease Denies: Hx Diabetes, Hx Systemic Lupus Erythematosus, Other Endocrine/ Hematological Disorders Cardiovascular History: Reports: Hx Aneurysm, Hx Hypercholesterolemia, Hx Hypertension, Hx Valvular Heart Disease - history of Mitral Valve disorder, Other Cardiovascular Problems/Disorders - PT STATES HAS "SOME KIND OF HEART DISEASE" Denies: Hx Congestive Heart Failure, Hx Pacemaker/ICD Respiratory History: Reports: Other Respiratory Problems/Disorders - HX OF TRACHEOSTOMY 01/2013 GI History: Reports: Hx Gall Bladder Disease - gallbladder removed, Other GI Disorders - Polycystic Liver History: Reports: Hx Acute Renal Failure, Hx Chronic Renal Failure, Hx Dialysis, Hx Kidney Infection - HX OF, Hx Kidney Stones, Hx Renal Disease - polycystic kidney disease Comment Only: Other Problems/Disorders - Polycystic Kidney Disease Musculoskeletal History: Reports: Hx Back Problems, Hx Orthopedic Injury - Hx fractured left arm and right leg. Fractured vertebrae, Other Musculoskeletal History - cervical fusion Denies: Hx Arthritis, Hx Rheumatoid Arthritis, Hx Osteoporosis Sensory History: Reports: Hx Contacts or Glasses - GLASSES Denies: Hx Hearing Aid, Other Sensory Impairments Opthamlomology History: Reports: Hx Contacts or Glasses - GLASSES Denies: Other Sensory Impairments Neurological History: Reports: Hx Headaches - OCCASIONAL, Hx Migraine - no longer has migraines, Hx Seizures, Other Neuro Impairments/Disorders - BRAIN ANEURSYM - 2006 Psychiatric History: Reports: Hx Anxiety, Hx Depression - PAST SUICIDE ATTEMPTS , Hx Inpatient Treatment, Hx Suicide Attempt - 06/2015 with [facility] admit, Hx Substance Abuse - 1981 tried cocaine Denies: Hx Eating Disorder, Hx Panic Disorder, Hx of Violent Episodes Against Others, Other Psychiatric Issues/Disorders - Cancer History Hx Chemotherapy: No - iv antibiotic therapy at home Hx Radiation Therapy: No - Surgical History Surgery Procedure, Year, and Place: 2006 BRAIN ANEURSYM REPAIRED/CRANIOTOMY [place] ANEURYSM CLIP OK FOR 1.5 PER SAFETY [place]. 2011 ORIF LEFT ELBOW- [place]. 1994 RIGHT LEG/ANKLE FX [facility]. 01/2013 REMOVAL OF HARDWARE LEFT ELBOW ; [facility]. PD CATHETAR FOR DIALYSIS 06/2016. 1994 BLADDER SLING [facility]. 2003, 2005 LIVER CYST REMOVAL [facility]. 1969 APPENDECTOMY, [facility]. TONSILLECTOMY A CHILD [facility]. 1991 LAP PAIGE [facility]. 2007 KIDNEY STONES [facility]. 2006 R OOPHERECTOMY [place]. 1999 ANTEROIR CERVICAL DISC FUSION [facility]. 01/2013 TRACHEOSTOMY, [facility] ( CLOSED PRESENTLY-2016). 2013 CYSTO, LITHO [facility]. 2012 L ARM FISTULA X3 [facility] Hx Anesthesia Reactions: No Infectious Disease History: Reports: Hx of Known/Suspected MRSA - lungs - 13 yrs ago Denies: History Other Infectious Disease, Traveled Outside the in Last 30 Days - Family History Known Family History: Positive: Renal Disease - polycystic kidney - Social History Alcohol Use: None Hx Substance Use: Yes Substance Use Type: Reports: Other Substance Use Comment - Amount & Last Used: HX ETOH AND DRUG ABUSE, takes morphine and oxycodone, overdose 06/2015 Hx Tobacco Use: Yes Smoking Status (MU): Current Some Day Smoker Type: Cigarettes Amount Used/How Often: VERY RARELY Length of Time of Smoking/Using Tobacco: 15 YRS Have You Smoked in the Last Year: Yes Review of Systems Negative: Fever, Chills Negative: Vomiting, Diarrhea, Nausea Positive: flank pain, hematuria All Other Systems Reviewed And Are Negative: Yes Physical Exam - Summary Physical Exam Summary: VITAL SIGNS: Reviewed. GENERAL: Patient is a well developed and nourished female who is in pain lying on the stretcher. Patient is not in any acute respiratory distress. She is anxious secondary to pain. The pain she describes is disproportional to the physical exam findings. HEAD AND FACE: Normocephalic EYES: PERRLA, EOMI x 2. EARS: Hearing grossly intact. MOUTH: Oropharynx within normal limits. NECK: Supple, trachea is midline, no adenopathy, no JVD, no carotid bruit. CHEST: Symmetric, no tenderness at palpation LUNGS: Clear to auscultation bilaterally. No wheezing or crackles. CVS: Regular rate and rhythm, S1 and S2 present, no murmurs or gallops appreciated. ABDOMEN: Soft, non-tender to the abdomen. There is positive bilateral CVA tenderness. Bowel sounds are normal. No abdominal abnormal pulsations. EXTREMITIES: Full ROM in all major joints, no edema, no cyanosis or clubbing. NEURO: Alert and oriented x 3. No acute neurological deficits. Speech is normal and follows commands. SKIN: Dry and warm Triage Information Reviewed: Yes Vital Signs On Initial Exam: Initial Vitals Temp Pulse Resp BP Pulse Ox 99.4 F 87 16 109/63 97 04/24/17 08:58 04/24/17 08:58 04/24/17 08:58 04/24/17 08:58 04/24/17 08:58 Vital Signs Reviewed: Yes Diagnostics - Vital Signs Vital Signs Temp Pulse Resp BP Pulse Ox 04/24/17 08:58 99.4 F 87 16 109/63 97 - Laboratory Lab Results: Lab Results 04/24/17 04/24/17 04/24/17 Range/Units 09:05 09:05 09:05 WBC 12.4 H (3.5-10.8) 10^3/ul RBC 4.34 (4.0-5.4) 10^6/ul Hgb 12.8 (12.0-16.0) g/dl Hct 40 (35-47) % MCV 92 (80-97) fL MCH 30 (27-31) pg MCHC 32 (31-36) g/dl RDW 15 (10.5-15) % Plt Count 349 (150-450) 10^3/ul MPV 8 (7.4-10.4) um3 Neut % (Auto) 80.2 (38-83) % Lymph % (Auto) 10.4 L (25-47) % Garza % (Auto) 6.9 (1-9) % Eos % (Auto) 1.6 (0-6) % Baso % (Auto) 0.9 (0-2) % Absolute Neuts (auto) 10.0 H (1.5-7.7) 10^3/ul Absolute Lymphs (auto) 1.3 (1.0-4.8) 10^3/ul Absolute Monos (auto) 0.9 H (0-0.8) 10^3/ul Absolute Eos (auto) 0.2 (0-0.6) 10^3/ul Absolute Basos (auto) 0.1 (0-0.2) 10^3/ul Absolute Nucleated RBC 0 10^3/ul Nucleated RBC % 0 INR (Anticoag Therapy) (0.89-1.11) APTT (26.0-36.3) seconds Sodium 135 (133-145) mmol/L Potassium 3.5 (3.5-5.0) mmol/L Chloride 96 L (101-111) mmol/L Carbon Dioxide 24 (22-32) mmol/L Anion Gap 15 H (2-11) mmol/L BUN 66 H (6-24) mg/dL Creatinine 6.08 H (0.51-0.95) mg/dL Est GFR ( Amer) 9.3 (>60) Est GFR (Non-Af Amer) 7.2 (>60) BUN/Creatinine Ratio 10.9 (8-20) Glucose 108 H (70-100) mg/dL Lactic Acid 1.0 (0.5-2.0) mmol/L Calcium 8.4 L (8.6-10.3) mg/dL Total Bilirubin 0.30 (0.2-1.0) mg/dL AST 9 L (13-39) U/L ALT 6 L (7-52) U/L Alkaline Phosphatase 188 H (34-104) U/L C-Reactive Protein 33.65 H (< 5.00) mg/L Total Protein 7.2 (6.4-8.9) g/dL Albumin 3.5 (3.2-5.2) g/dL Globulin 3.7 (2-4) g/dL Albumin/Globulin Ratio 0.9 L (1-3) Lipase 28 (11.0-82.0) U/L Urine Color Urine Appearance Urine pH (5-9) Ur Specific [place] (1.010-1.030) Urine Protein (Negative) Urine Ketones (Negative) Urine Blood (Negative) Urine Nitrate (Negative) Urine Bilirubin (Negative) Urine Urobilinogen (Negative) Ur Leukocyte Esterase (Negative) Urine WBC (Auto) (Absent) Urine RBC (Auto) (Absent) Ur Squamous Epith Cells (Absent) Urine Bacteria (Absent) Urine Glucose (Negative) 04/24/17 04/24/17 Range/Units 09:05 10:45 WBC (3.5-10.8) 10^3/ul RBC (4.0-5.4) 10^6/ul Hgb (12.0-16.0) g/dl Hct (35-47) % MCV (80-97) fL MCH (27-31) pg MCHC (31-36) g/dl RDW (10.5-15) % Plt Count (150-450) 10^3/ul MPV (7.4-10.4) um3 Neut % (Auto) (38-83) % Lymph % (Auto) (25-47) % Garza % (Auto) (1-9) % Eos % (Auto) (0-6) % Baso % (Auto) (0-2) % Absolute Neuts (auto) (1.5-7.7) 10^3/ul Absolute Lymphs (auto) (1.0-4.8) 10^3/ul Absolute Monos (auto) (0-0.8) 10^3/ul Absolute Eos (auto) (0-0.6) 10^3/ul Absolute Basos (auto) (0-0.2) 10^3/ul Absolute Nucleated RBC 10^3/ul Nucleated RBC % INR (Anticoag Therapy) 0.88 L (0.89-1.11) APTT 36.8 H (26.0-36.3) seconds Sodium (133-145) mmol/L Potassium (3.5-5.0) mmol/L Chloride (101-111) mmol/L Carbon Dioxide (22-32) mmol/L Anion Gap (2-11) mmol/L BUN (6-24) mg/dL Creatinine (0.51-0.95) mg/dL Est GFR ( Amer) (>60) Est GFR (Non-Af Amer) (>60) BUN/Creatinine Ratio (8-20) Glucose (70-100) mg/dL Lactic Acid (0.5-2.0) mmol/L Calcium (8.6-10.3) mg/dL Total Bilirubin (0.2-1.0) mg/dL AST (13-39) U/L ALT (7-52) U/L Alkaline Phosphatase (34-104) U/L C-Reactive Protein (< 5.00) mg/L Total Protein (6.4-8.9) g/dL Albumin (3.2-5.2) g/dL Globulin (2-4) g/dL Albumin/Globulin Ratio (1-3) Lipase (11.0-82.0) U/L Urine Color Shell Urine Appearance Cloudy Urine pH 6.0 (5-9) Ur Specific [place] 1.014 (1.010-1.030) Urine Protein 2+(100 mg/dl) H (Negative) Urine Ketones Negative (Negative) Urine Blood 3+ H (Negative) Urine Nitrate Negative (Negative) Urine Bilirubin Negative (Negative) Urine Urobilinogen Negative (Negative) Ur Leukocyte Esterase 3+ H (Negative) Urine WBC (Auto) 3+(>20/hpf) H (Absent) Urine RBC (Auto) 3+(>10/hpf) H (Absent) Ur Squamous Epith Cells Present H (Absent) Urine Bacteria 2+ H (Absent) Urine Glucose Negative (Negative) Result Diagrams: 04/24/17 09:05 04/24/17 09:05 Lab Statement: Any lab studies that have been ordered have been reviewed, and results considered in the medical decision making process. - CT Abd/Pel CT Interpretation Completed By: Radiologist - 1. AGAIN NOTED ARE INNUMERABLE HEPATIC PARENCHYMAL AND RENAL PARENCHYMAL CYSTS, CONSISTENT WITH A AUTOSOMAL DOMINANT POLYCYSTIC KIDNEY DISEASE. 2. THERE ARE MULTIPLE RENAL CALCIFICATIONS WHICH MAY BE PARENCHYMAL OR WITHIN THE COLLECTING SYSTEM, EVALUATION IS LIMITED BY THE CYSTIC REPLACEMENT OF THE RENAL PARENCHYMA. THERE IS NO APPRECIABLE HYDRONEPHROSIS. 3. A PERITONEAL DIALYSIS CATHETER IS NOTED WITH A SMALL AMOUNT OF FREE FLUID WITHIN THE PELVIS. 4. STATUS POST CHOLECYSTECTOMY WITHOUT DUCTAL ECTASIA Re-Evaluation - Re-Evaluation First Eval Re-Evaluation Time: 11:36 Comment: Plan for discharge discussed. She agrees to return for any fevers, chills, nausea, or vomiting. GIGU Course/Dx - Course Assessment/Plan: Patient is a 56 year-old female coming to [facility] for evaluation of right flank pain since yesterday morning, worse since last night. She reports 10/10 pain, non-radiating from the right flank. Denies any fevers or chills. Denies N/V/D or constipation. She reports hematuria. The patient sees Dr. Oleary (PCP). Test results WNL except for WBC of 12.4, anion gap is 15, BUN of 66, and creatinine of 6.08. The patient is consistent with ESRD for which she is on peritoneal dialysis. UA is contaminated, and we will send for cultures. CT of the abd/pel shows findings as read by the radiologist: 1. Again noted are innumerable hepatic parenchymal and renal parenchymal cysts, consistent with a autosomal dominant polycystic kidney disease. 2. There are multiple renal calcifications which may be parenchymal or within the collecting system, evaluation is limited by the cystic replacement of the renal parenchyma. There is no appreciable hydronephrosis. 3. A peritoneal dialysis catheter is noted with a small amount of free fluid within the pelvis. 4. Status post cholecystectomy without ductal ectasia. In the ED course, the patient was hydrated with IV fluids and was given 5mg morphine, and 1mg dilaudid. I discussed my physical exam findings with Dr. Oleary who is her PCP. He reviewed the test results and CT imaging result and recommends for her to be discharged home. She already has a prescription from Dr. Oleary for ciprofloxacin for possible UTI as well as pain medications for her chronic pain. I discussed my findings with the patient and she was instructed to return to the ED with any fevers, chills, nausea, vomiting, or increase in pain. I discussed all the findings and test results with the patient. Patient was instructed to return to the emergency room immediately if any of the symptoms return or worsens. Plan of care was discussed with the patient and understands and agrees. All questions were answered at patient satisfaction. There were no further complaints or concerns. Lung exam before discharge: CTA B/L. Good air exchange. No wheezing or crackles heard. CVS: S1 and S2 present. No murmurs appreciated. Patient is alert and oriented x 3. Patient is hemodynamically stable. Patient will be discharged home with follow up PCP in the next 2-3 days - Diagnoses Differential Diagnoses - Female: Renal Calculi, Renal Colic, Urinary Tract Infection, Ureteral Calculi Provider Diagnoses: Flank pain, Hematuria - Physician Notifications Discussed Care Of Patient With: Dr. Oleary (PCP) at 1025: will see the patient in the ED. Discharge - Discharge Plan Condition: Stable Disposition: HOME Patient Education Materials: Flank Pain (ED), Hematuria (ED) Referrals: Dimitry Oleary MD [Primary Care Provider] - The documentation as recorded by the Moncho hernandez Billy accurately reflects the service I personally performed and the decisions made by Jimmy gunter Walter, MD.
--- NOTE | 2017-04-26 08:38 | PN ---
Progress Note - Progress Note Note: Pt urine culture grew E coli >100,000. pt placed on cipro by primary will wait for final cultures.
== END 2017-04-24 11:52 | disposition home or self-care (01) ==
LOC: ED 08:55
DX: R10.10 Upper abdominal pain, unspecified (principal); R31.9 Hematuria, unspecified; N02.9 Recurrent and persistent hematuria with unspecified morphologic changes; Z88.2 Allergy status to sulfonamides
CPT/HCPCS: 36415; 74176; 80053; 81003; 81015; 83605; 83690; 85025; 85610; 85730; 86140; 87077; 87086; 87186; J1170; J2270

== ENCOUNTER 2017-12-14 02:08 | Inpatient (IN) | payer MEDICARE, MEDICAID ==
[2017-12-14] MEDS ORDERED: Morphine INJ* 4 MG/ML 1 ML CARPUJECT IV ONE (02:33)
[2017-12-14] MEDS ORDERED: Ondansetron INJ* 2 MG/ML VIAL IV ONE (02:34)
[2017-12-14 03:08] LABS: ABS Basophils 0.1 10^3/ul (0-0.2); ABS Eosinophils 0.2 10^3/ul (0-0.6); ABS Monocytes 0.6 10^3/ul (0-0.8); ABS Neutrophils 4.8 10^3/ul (1.5-7.7); ABS Nucleated RBC 0 10^3/ul; Eosinophil % 2.6 % (0-6); Hematocrit 31 % (35-47); Hemoglobin 10.5 g/dl (12.0-16.0); Lymphocyte % 26.2 % (25-47); Mean Corpuscular HGB Conc 34 g/dl (31-36); Mean Corpuscular Hemoglobin 29 pg (27-31); Mean Corpuscular Volume 86 fL (80-97); Mean Platelet Volume 7 um3 (7.4-10.4); Nucleated Red Blood Cells % 0; Platelet Count 280 10^3/ul (150-450); Red Blood Count 3.62 10^6/ul (4.0-5.4); Red Cell Distribution Width 15 % (10.5-15); White Blood Count 7.7 10^3/ul (3.5-10.8)
[2017-12-14 03:20] LABS: INR 0.96 (0.77-1.02)
[2017-12-14] MEDS ORDERED: Levofloxacin 500 MG IVPREMIX(* 500 MG/100 ML BAG IVPB ONE (03:37)
[2017-12-14] MEDS ORDERED: ALPRAZolam TAB* 0.5 MG PO ONE (04:03)
--- NOTE | 2017-12-14 05:25 | ED ---
Mariangel Jones Nilda, scribed for Herbert Adams MD on 12/14/17 at 0224 . HPI Cardiac - HPI Summary HPI Summary: This patient is a 56 year old F presenting to [facility] with a chief complaint of constant racing heartbeat since yesterday. Pt states she wants her potassium checked because she's concerned it's elevated. Patient reports SOB and chest tightness. Symptoms aggravated and alleviated by nothing. Pt states she had kidneys removed due to enlarged kidneys. Pt notes she has been on peritoneal dialysis for 2 years. She states shes on 9 hours on the machine overnight. Medications include Clonidine, Keppra (epilectic), and Suboxone. - History of Current Complaint Stated Complaint: SOB Time Seen by Provider: 12/14/17 02:10 Hx Obtained From: Patient Onset/Duration: Started Days Ago - over 24 hours Timing: Constant, Lasting Days Character: Fast Aggravating Factor(s): Nothing Alleviating Factor(s): Nothing Associated Signs and Symptoms: Positive: Other: - SOB and chest tightness. - Additional Pertinent History Primary Care Physician: [id number] - Allergy/Home Medications Allergies/Adverse Reactions: Allergies Allergy/AdvReac Type Severity Reaction Status Date / Time Sulfa Drugs Allergy Unknown Unknown Verified 12/14/17 02:32 Reaction Details Fentanyl Allergy STOPPED Verified 12/14/17 02:32 BREATHING NSAIDs AdvReac Severe See Comment Verified 12/14/17 02:32 PMH/Surg Hx/FS Hx/Imm Hx Endocrine/Hematology History: Reports: Hx Thyroid Disease Denies: Hx Diabetes, Hx Systemic Lupus Erythematosus, Other Endocrine/ Hematological Disorders Cardiovascular History: Reports: Hx Aneurysm, Hx Hypercholesterolemia, Hx Hypertension, Hx Valvular Heart Disease - history of Mitral Valve disorder, Other Cardiovascular Problems/Disorders - PT STATES HAS "SOME KIND OF HEART DISEASE" Denies: Hx Congestive Heart Failure, Hx Pacemaker/ICD Respiratory History: Reports: Other Respiratory Problems/Disorders - HX OF TRACHEOSTOMY 01/2013 GI History: Reports: Hx Gall Bladder Disease - gallbladder removed, Other GI Disorders - Polycystic Liver History: Reports: Hx Acute Renal Failure, Hx Chronic Renal Failure, Hx Dialysis - every night, Hx Kidney Infection - HX OF, Hx Kidney Stones, Hx Renal Disease - polycystic kidney disease Comment Only: Other Problems/Disorders - Polycystic Kidney Disease Musculoskeletal History: Reports: Hx Back Problems, Hx Orthopedic Injury - Hx fractured left arm and right leg. Fractured vertebrae, Other Musculoskeletal History - cervical fusion Denies: Hx Arthritis, Hx Rheumatoid Arthritis, Hx Osteoporosis Sensory History: Reports: Hx Contacts or Glasses - GLASSES Denies: Hx Hearing Aid, Other Sensory Impairments Opthamlomology History: Reports: Hx Contacts or Glasses - GLASSES Denies: Other Sensory Impairments Neurological History: Reports: Hx Headaches - OCCASIONAL, Hx Migraine - no longer has migraines, Hx Seizures, Other Neuro Impairments/Disorders - BRAIN ANEURSYM - 2006 Psychiatric History: Reports: Hx Anxiety, Hx Depression - PAST SUICIDE ATTEMPTS , Hx Inpatient Treatment, Hx Suicide Attempt - 06/2015 with [facility] admit, Hx Substance Abuse - 1981 tried cocaine Denies: Hx Eating Disorder, Hx Panic Disorder, Hx of Violent Episodes Against Others, Other Psychiatric Issues/Disorders - Cancer History Hx Chemotherapy: No - iv antibiotic therapy at home Hx Radiation Therapy: No - Surgical History Surgery Procedure, Year, and Place: 2006 BRAIN ANEURSYM REPAIRED/CRANIOTOMY [place] ANEURYSM CLIP OK FOR 1.5 PER SAFETY [facility]. 2011 ORIF LEFT ELBOW- [place]. 1994 RIGHT LEG/ANKLE FX [facility]. 01/2013 REMOVAL OF HARDWARE LEFT ELBOW ; [facility]. PD CATHETAR FOR DIALYSIS 06/2016. 1994 BLADDER SLING [facility]. 2003, 2005 LIVER CYST REMOVAL [facility]. 1969 APPENDECTOMY, [facility]. TONSILLECTOMY A CHILD [facility]. 1991 LAP PAIGE [facility]. 2006 KIDNEY STONES [facility]. 2006 R OOPHERECTOMY [place]. 1999 ANTEROIR CERVICAL DISC FUSION [facility]. 01/2013 TRACHEOSTOMY, [facility] ( CLOSED PRESENTLY-2016). 2013 CYSTO, LITHO [facility]. 2012 L ARM FISTULA X3 [facility]. 2017 bilatereal nephrectomy Hx Anesthesia Reactions: No Infectious Disease History: Reports: Hx of Known/Suspected MRSA - lungs - 13 yrs ago Denies: History Other Infectious Disease - Family History Known Family History: Positive: Renal Disease - polycystic kidney - Social History Alcohol Use: None Hx Substance Use: Yes Substance Use Type: Reports: Other Substance Use Comment - Amount & Last Used: HX ETOH AND DRUG ABUSE, takes morphine and oxycodone, overdose 06/2015 Hx Tobacco Use: Yes Smoking Status (MU): Current Some Day Smoker Type: Cigarettes Amount Used/How Often: VERY RARELY Length of Time of Smoking/Using Tobacco: 15 YRS Have You Smoked in the Last Year: Yes Review of Systems Positive: Chest Pain - tightness, Other - racing heartbeat Positive: Shortness Of Breath All Other Systems Reviewed And Are Negative: Yes Physical Exam - Summary Physical Exam Summary: VITAL SIGNS: Reviewed. GENERAL: Patient is a well-developed and nourished female who is lying comfortable in the stretcher. Patient is not in any acute respiratory distress. HEAD AND FACE: No signs of trauma. No ecchymosis, hematomas or skull depressions. No sinus tenderness. EYES: PERRLA, EOMI x 2, No injected conjunctiva, no nystagmus. EARS: Hearing grossly intact. Ear canals and tympanic membranes are within normal limits. MOUTH: Oropharynx within normal limits. NECK: Supple, trachea is midline, no adenopathy, no JVD, no carotid bruit, no c- spine tenderness, neck with full ROM. CHEST: Symmetric, no tenderness at palpation LUNGS: Clear to auscultation bilaterally. No wheezing or crackles. CVS: Regular rate and rhythm, S1 and S2 present, no murmurs or gallops appreciated. ABDOMEN: Soft, non-tender. No signs of distention. No rebound no guarding, and no masses palpated. Bowel sounds are normal. EXTREMITIES: FROM in all major joints, no edema, no cyanosis or clubbing. AV fistula over left upper arm with good thrill. NEURO: Alert and oriented x 3. No acute neurological deficits. Speech is normal and follows commands. SKIN: Dry and warm Triage Information Reviewed: Yes Vital Signs Reviewed: Yes Procedures - Procedure Summary Procedure Summary: IV start: Pt does not have peripheral access. Pt consented to EJ IV. Used angiocath 18 guage. Good blood return. Good flush first attempt. Diagnostics - Laboratory Result Diagrams: 12/14/17 02:50 12/14/17 02:50 Lab Statement: Any lab studies that have been ordered have been reviewed, and results considered in the medical decision making process. - Radiology CXR Radiology Interpretation Completed By: ED Physician - bilat venous congestion and right lower lobe infiltrate. - EKG 223 Cardiac Rate: NL EKG Rhythm: Sinus Rhythm - 83 bpm EKG Interpretation: Left axis deviation, no acute ischemic changes Re-Evaluation - Re-Evaluation First Eval Re-Evaluation Time: 03:43 Comment: Reviewed lab results and plan to admit. Disposition - Course Assessment/Plan: Pt is a 56 y/o F with PMHx polycystic kidney disease s/p bilateral nephrectomies. Pt on dialysis. Pt came in c/o racing heartbeat, SOB, and chest tightness. CXR showed bilat venous congestion and right lower lobe infiltrate. Trop was elevated. Pt is in renal failure. [0356] Dr. James ( hospitalist) agrees to admit pt. Procedure note for IV start: Pt does not have peripheral access point. Pt consented to EJ IV. Used angiocath, 18 guage. Good blood return. Good flush first attempt. Pt is stable and will be admitted with Dx PNA in right lower lobe, CP, volume overload, and elevated trop. Pt understands and is agreeable to this plan. - Diagnoses Provider Diagnoses: Right lower lobe pneumonia, Chest pain, Volume overload, Elevated troponin - Physician Notifications Discussed Care Of Patient With: Sammy James - hospitalist Time Discussed With Above Provider: 03:56 Instructed by Provider To: Admit As Inpatient Discharge - Discharge Plan Condition: Stable Disposition: ADMITTED TO [facility] Referrals: Dimitry Oleary MD [Primary Care Provider] - The documentation as recorded by the Mariangel hernandez Nilda accurately reflects the service I personally performed and the decisions made by , Herbert Adams MD.
[2017-12-14 06:29] VITALS: BP 135/81
--- NOTE | 2017-12-14 07:45 | RAD ---
HISTORY: Shortness of breath COMPARISONS: December 06, 2016 VIEWS: 1: frontal portable view of the chest at 2:43 AM FINDINGS: LINES AND TUBES: None. CARDIOMEDIASTINAL SILHOUETTE: The cardiomediastinal silhouette is normal for portable technique. PLEURA: There is blunting of the right costophrenic angle. LUNG PARENCHYMA: There is prominence of the central pulmonary vasculature with a mild diffuse reticular pattern. ABDOMEN: The upper abdomen is clear. There is no subphrenic gas. BONES AND SOFT TISSUES: The patient is status post anterior cervical fusion. IMPRESSION: MILD PULMONARY INTERSTITIAL EDEMA WITH THE SMALL TO MODERATE RIGHT PLEURAL EFFUSION
[2017-12-14] MEDS ORDERED: levETIRAcetam TAB* 500 MG PO SCH (09:00)
[2017-12-14] MEDS ORDERED: Buprenorphine/Naloxone 8-2 MG SL TAB* 1 TAB SL SCH (09:00)
[2017-12-14] MEDS ORDERED: cloNIDine TAB* 0.1 MG PO SCH (09:00)
--- NOTE | 2017-12-14 09:59 | ECHO ---
Patient: NISSA NEVES [facility] Rec#: [id number] : 1960 Date: 12/14/2017 Age: 56y Height: 162.56 cm / 64.0 in Weight: 54.43 kg / 120.0 lbs Sex: F BSA: 1.57 Room#: [facility] Admit Date#: 12/14/2017 Type: Inpatient Referring: Sammy James Reading: Branden Kerr MD Mortgage Loan Underwriter: Greta Yang RDCS CC: Dimitry Oleary MD Transthoracic Echocardiogram Indication: Shortness of breath, CHF BP: 135/81 HR: 75 Rhythm: NSR Findings History: HTN, HLD, MV disorder, polycystic kidney disease s/p bilateral nephhrectomies, CRF on peritoneal dialysis, anxiety, depression, brain aneurysm. Technical Comments: The study quality is good. Completed at 0900. Left Ventricle: The left ventricular chamber size is normal. Mild concentric left ventricular hypertrophy is observed. There is a prominent septal knuckle. Global left ventricular wall motion and contractility are within normal limits. Left ventricular systolic function is at the lower limits of normal. The estimated ejection fraction is 50-55%. There is no consistent Doppler evidence of clinically significant diastolic dysfunction. Left Atrium: The left atrium is moderate to severely dilated. Right Ventricle: The right ventricular cavity size is normal. The right ventricular global systolic function is normal. Right Atrium: The right atrium is moderately dilated. There is evidence of an atrial septal aneurysm. Aortic Valve: The aortic valve is trileaflet. There is no evidence of aortic valve thickening. There is a trace of aortic regurgitation. There is no evidence of aortic stenosis. Mitral Valve: There is posterior mitral annular calcification. The mitral valve leaflets are mildly thickened. There is moderate to severe mitral regurgitation. Calculated severity by PISA is severe. There is no evidence of mitral stenosis. Tricuspid Valve: The tricuspid valve leaflets are normal. There is moderate tricuspid regurgitation. The right ventricular systolic pressure is estimated at 49 mmHg. There is evidence of moderate pulmonary hypertension. There is no tricuspid stenosis. Pulmonic Valve: The pulmonic valve appears normal. There is a trace pulmonic regurgitation. There is no pulmonic stenosis. Pericardium: There is no significant pericardial effusion. A left pleural effusion is present. Aorta: There is no dilatation of the ascending aorta. There is no dilatation of the aortic arch. The aortic root is normal in size. Pulmonary Artery: The main pulmonary artery appears normal. Venous: The inferior vena cava is dilated. There is a greater than 50% respiratory change in the inferior vena cava dimension. Conclusions Mild concentric left ventricular hypertrophy is observed. Left ventricular systolic function is at the lower limits of normal. The estimated ejection fraction is 50-55%. There is moderate to severe mitral regurgitation. Calculated severity by PISA is severe. The left atrium is moderate to severely dilated. There is moderate tricuspid regurgitation. There is evidence of moderate pulmonary hypertension. The right atrium is moderately dilated. There is evidence of an atrial septal aneurysm. There is a trace pulmonic regurgitation. A left pleural effusion is present. Compared to report of study from 07/12/2015 the LV systolic function is less (was greater than 65 %), the mitral regurgitation has markedly increased(was trace), the degree of tricuspid regugitation has increased (was trace), the patient now has moderate pulmonary HTN. The right and left atrium are enlarged (LA was slightly enlarged). Measurements Name Value Normal Range RVIDd (AP) 2D 2.6 cm (0.9 - 2.6) RVDdMajor (2D) 4.2 cm (2.2 - 4.4) RAd ISD 4CH 5.9 cm (3.4 - 4.9) RA (A4C)W 4.7 cm (2.9 - 4.6) IVSd (2D) 1.3 cm (0.6 - 1) LVPWd (2D) 1.2 cm (0.6 - 1) LVIDd (2D) 4.7 cm (3.6 - 5.4) LVIDs (2D) 3.4 cm - LV FS (2D) 28 % (25 - 45) Aortic Annulus 2 cm (1.4 - 2.6) Ao root diameter (2D) 2.9 cm (2.1 - 3.5) Ascending Ao 2.7 cm (2.1 - 3.4) Aortic arch 2.8 cm (1.8 - 3.4) LA dimension (AP) 2D 4.2 cm (2.3 - 3.8) LAd ISD 4CH 5.7 cm (2.9 - 5.3) LA ISD 4CH W 5.9 cm (2.5 - 4.5) Name Value Normal Range LA ESV SP 4CH (A/L) 89 ml - LA ESV SP 2CH (A/L) 157 ml - LA ESV BP (A/L) 127 ml - LA ESV BP (A/L) index 80.19 ml/m2 - LA ESV SP 4CH (MOD) 83 ml - LA ESV SP 2CH (MOD) 148 ml - Name Value Normal Range MV E-wave Vmax 1.51 m/sec - MV deceleration time 133.5 msec - MV A-wave Vmax 0.97 m/sec - MV E:A ratio 1.55 ratio - LV septal e' Vmax 0.06 m/sec - LV lateral e' Vmax 0.06 m/sec - LV E:e' septal ratio 25.17 ratio - LV E:e' lateral ratio 25.17 ratio - Name Value Normal Range AV Vmax 1.26 m/sec - AV VTI 25.62 cm - AV peak gradient 6.4 mmHg - AV mean gradient 3.56 mmHg - LVOT Vmax 1 m/sec - LVOT VTI 19.25 cm - LVOT peak gradient 4.25 mmHg - LVOT mean gradient 2.12 mmHg - HIMANSHU Vmax 0.63 m/sec - Name Value Normal Range MV Vmax 1.47 m/sec - MV VTI 38.62 cm - MV peak gradient 8.66 mmHg - MV mean gradient 3.71 mmHg - MV PHT 76.9 msec - MR Vmax 5.84 m/sec - MR VTI 196.1 cm - MR flow (PISA) 226.3 ml/sec - MR ERO 0.39 cm2 - MR PISA radius 0.8 cm - MR alias Vmax 60 cm/sec - MVA (PHT) 2.85 cm2 - Name Value Normal Range TR Vmax 3.2 m/sec - TR peak gradient 41 mmHg - RAP 8 mmHg - RVSP 49 mmHg - IVC diameter 2.4 cm - Name Value Normal Range PV Vmax 0.73 m/sec - PV peak gradient 2.15 mmHg -
--- NOTE | 2017-12-14 12:19 | PN ---
Hospitalist Progress Note Date of Service: 12/14/[address] Branch, patient wants to leave and can be discharged. She has instructions on altering her PD at home and will follow up in office. PAtient is stating she will leave AMA if she is not discharged. She refused any further care and will not wait to be seen by me. Will discharge now per her request and Dr. Branch's. She will follow up with him in his office.
--- NOTE | 2017-12-14 22:11 | HP ---
HISTORY AND PHYSICAL: DATE OF ADMISSION: 12/14/17 ADMITTING PROVIDER: Sammy James MD PRIMARY CARE PHYSICIAN: Dimitry Oleary MD CHIEF COMPLAINT: Chest tightness, shortness of breath, dyspnea on exertion. HISTORY OF PRESENT ILLNESS: Lida Martines is a 55-year-old female PMH of polycystic kidney disease, end-stage renal disease, initially on hemodialysis, then peritoneal analysis, recently had nephrectomies four months ago, history of opioid abuse and suicidal ideation, currently on Suboxone, hypertension, seizure disorder and brain aneurysm, status post surgery. The patient presents with complaint of progressive chest tightness, heaviness, pressure in the chest , dyspnea on exertion, shortness of breath at rest. She followed up with Dr. Branch last week ( returning after a long period of time as for a couple of months she was getting her care at [place], [place]). She had an 11-week admission for sepsis with 3 bouts of ruptured cyst over the summer 2016. Upon presentation to [facility] ED, she was found to be fluid overloaded with a BNP of 39, 42, pulmonary edema and effusions on chest x- ray, troponin of 0.12, is being admitted for need for initiation of hemodialysis in the setting of failure of outpatient peritoneal dialysis. This potential occurence was actually discussed by Dr. Branch last week with the patient as he thinks more aggressive hemodialysis was needed. The patient attest to being very anxious which she denies a history of. Denies any fever, sick contacts, nausea or vomiting. The patient received 1 dose of Levaquin in the emergency room given indeterminate chest x-ray findings, but denies any fevers, chills. MEDICATIONS: Include: 1. Clonidine 0.2 mg b.i.d. 2. Suboxone 8-2 mg b.i.d. 3. Keppra 500 mg p.o. b.i.d. ALLERGIES: Include SULFA drugs, FENTANYL, NSAIDS. FAMILY HISTORY: Lung cancer in both mother and father. SOCIAL HISTORY: The patient is a former smoker and remote former drinker. The patient's surrogate decision maker is daughter, Cherelle Franks. She desires to be a full code. REVIEW OF SYSTEMS: A complete 12-point review of systems negative except as per HPI. PHYSICAL EXAMINATION GENERAL APPEARANCE: No acute distress, sitting in bed. VITAL SIGNS: Temperature 98.6, heart rate 77, respiratory rate 16, sating 99% on room air, blood pressure 123/76. HEENT: Normocephalic, atraumatic. Pupils equal, round, and reactive to light. Extraocular motions intact. Right EJ in place. PULMONARY: Reduced breath sounds at bilateral bases and rales at left mid lung base. CARDIOVASCULAR: Regular rate and rhythm, 2/6 systolic ejection murmur throughout the precordium. ABDOMEN: Soft, nontender, slightly distended. EXTREMITIES: 1+ pitting edema bilaterally. SKIN: No rashes. No lesions. NEURO: Cranial nerves II through XII grossly intact. Moving all extremities. Sensation is intact. LABORATORY DATA: White count 7.7, hemoglobin 12.5, hematocrit 31, platelets 280, INR 0.96. Sodium 131, potassium 4.5, chloride 91, carbon dioxide 30, BUN 70, creatinine 10.0, glucose 101, magnesium 2.8, troponin 0.12, AST 14, ALT 9, alk phos 80. TSH 10.02. Chest x-ray, official report pending, but bilateral pulmonary edema and layering effusion on the right per my read, difficult to exclude underlying infiltrate. EKG normal sinus rhythm, QTc 513. No ST changes or T-wave inversions. ASSESSMENT AND PLAN: Lida Martines is a 56-year-old female, past medical history end-stage renal disease secondary to polycystic disease, now status post nephrectomies who has been failing peritoneal dialysis and likely needs hemodialysis set up with Dr. Branch. He should be consulted in the morning. She is not hypoxic, but clearly volume overloaded, not hyperkalemic. We will monitor electrolytes and get her set up hopefully today. She already has a working left arm fistula. For her history of opioid dependence, we will continue her Suboxone 8-2mg b.i.d. For seizure disorder/epilepsy, continue Keppra b.i.d. and for hypertension, continue clonidine 0.2 mg p.o. b.i.d. Given her murmur and volume overload and last echo two and a half years ago, we will repeat an echocardiogram to make sure there is no cardiogenic component of the volume overload, trend her troponins, initial was 0.12 in the setting of end -stage renal disease. We will keep her on telemetry. She is a Medicine inpatient, full code. Medical surrogate is daughter, Cherelle Franks. [id number]/CPS #: [id number] BIPIN
--- NOTE | 2017-12-20 12:30 | DS ---
AMENDED REPORT NOW INCLUDES COSIGNER DESIGNATION - ESIGNED BEFORE ADJUSTMENT CC: Dr. Oleary; Dr. Branch * DISCHARGE SUMMARY: DATE OF ADMISSION: 12/14/17 DATE OF DISCHARGE: 12/19/17 PRIMARY CARE PROVIDER: Dimitry Oleary MD. ATTENDING PHYSICIAN DURING THIS HOSPITALIZATION: Sammy James MD * (DICTATED BY SAMANTHA MENESES NP) HOSPITAL COURSE: This patient was admitted on 12/14/17 and was actually discharged the same day. The patient actually wanted to leave against medical advice. She initially came in with a complaint of chest tightness, heaviness and pressure, dyspnea on exertion, shortness of breath at rest. Important to known the patient does have a history of polycystic kidney disease with endstage renal disease, on hemodialysis and then peritoneal dialysis. She had bilateral nephrectomies 4 months prior. She was in to see Dr. Branch the week before. However, even though the patient's peritoneal dialysis had been titrated, she still was severely volume overloaded and came to the emergency department seeking care. The patient was admitted for fluid overload. The next morning, she was supposed to see Dr. Branch, which she did and then the patient decided to sign out AMA. The patient had seen Dr. Branch, I did not personally evaluate the patient. After her admission, I was called by the nursing staff to say that the patient was threatening to sign out AMA. She did have a conversation with Dr. Branch. Please see any notes regarding this. I did have a conversation with Dr. Branch and myself, who said that the patient could be discharged that she needed to titrate her peritoneal dialysis. I believe, she did receive some Lasix in the ER in attempts at diuresis, but at any rate she was not willing wait to see me and was threatening again to sign AMA, so I agreed to discharge her on the recommendation of Dr. Branch and that she will followup with him in the office. So again, the patient was essentially signing out against medical advice. She did receive a discharge by me, but I did not personally evaluate the patient. SAMANTHA MENESES, JAKE [id number]/[facility] #: [id number] BIPIN
== END 2017-12-14 12:40 | disposition home or self-care (01) | DRG 682 ==
LOC: ED 02:08 → MEDTELE 04:00
PROVIDERS: ADMIT Internal Medicine; ATTEND Internal Medicine
DX: I12.0 Hypertensive chronic kidney disease with stage 5 chronic kidney disease or end stage renal disease (principal); N18.6 End stage renal disease; J81.1 Chronic pulmonary edema; E87.70 Fluid overload, unspecified; Q61.3 Polycystic kidney, unspecified; Z99.2 Dependence on renal dialysis; F11.21 Opioid dependence, in remission; G40.909 Epilepsy, unspecified, not intractable, without status epilepticus; Z79.899 Other long term (current) drug therapy; Z88.6 Allergy status to analgesic agent; Z88.2 Allergy status to sulfonamides; Z88.8 Allergy status to other drugs, medicaments and biological substances; Z80.1 Family history of malignant neoplasm of trachea, bronchus and lung; Z87.891 Personal history of nicotine dependence
CPT/HCPCS: 36415; 71045; 80053; 83735; 83880; 84145; 84443; 84484; 85025; 85610; 85730; 87040; 87641; 93005; 93306; 99285; A9270-GY; J1956

== ENCOUNTER 2018-03-04 05:57 | Emergency (ER) | payer MEDICARE, MEDICAID ==
[2018-03-04] MEDS ORDERED: Ondansetron ODT TAB* 4 MG SL ONE (06:35)
[2018-03-04 06:47] VITALS: BP 136/94
--- NOTE | 2018-03-04 06:56 | ED ---
Sabra Jones Rebecca, scribed for Herbert Adams MD on 03/04/18 at 0638 . Complex/Multi-Sys Presentation - HPI Summary HPI Summary: Pt is a 57 y/o F BIBA who presents to ED c/o suspected adverse effects from a bug spray. Pt reports that on 03/01 (3 days ago) she sprayed her mobile home using an indoor disinfectant to treat beetles. States she lightly sprayed the entire house, though heavily sprayed her bedroom. States that she has been sleeping with her bedroom door closed and that she has been leaving the house over the last 3 days, reporting she believes the symptoms improve when not home. Pt c/o myalgias, arthralgias, nausea, confusion and SOB. Associated pain is currently moderate, ranked 5/10. Denies any vomiting. Reports she read the label on the bottle and does not recall any warnings for such symptoms. - History Of Current Complaint Chief Complaint: EDGeneral Hx Obtained From: Patient Onset/Duration: Still Present Severity Currently: Moderate - 5/10 Location: Pain At: - Diffuse myalgias and arthralgias Associated Signs And Symptoms: Positive: SOB, Nausea, Other - Myalgias, arthralgias, confusion. Negative: Vomiting - Allergies/Home Medications Allergies/Adverse Reactions: Allergies Allergy/AdvReac Type Severity Reaction Status Date / Time fentanyl Allergy Shortness Verified 02/15/18 09:48 of Breath Sulfa Drugs Allergy Unknown Unknown Uncoded 02/15/18 09:48 Reaction Details PMH/Surg Hx/FS Hx/Imm Hx Endocrine/Hematology History: Reports: Hx Thyroid Disease Denies: Hx Diabetes, Hx Systemic Lupus Erythematosus, Other Endocrine/ Hematological Disorders Cardiovascular History: Reports: Hx Aneurysm, Hx Hypercholesterolemia, Hx Hypertension - CONTROLLED WITH MEDICATION, Hx Valvular Heart Disease - history of Mitral Valve disorder, Other Cardiovascular Problems/Disorders - PT STATES HAS "SOME KIND OF HEART DISEASE" Denies: Hx Congestive Heart Failure, Hx Pacemaker/ICD Respiratory History: Reports: Other Respiratory Problems/Disorders - HX OF TRACHEOSTOMY 01/2013 GI History: Reports: Hx Gall Bladder Disease - gallbladder removed, Other GI Disorders - Polycystic Liver History: Reports: Hx Acute Renal Failure, Hx Chronic Renal Failure, Hx Dialysis - every night, Hx Kidney Infection - HX OF, Hx Kidney Stones, Hx Renal Disease Comment Only: Other Problems/Disorders - Polycystic Kidney Disease Musculoskeletal History: Reports: Hx Back Problems, Hx Orthopedic Injury - Hx fractured left arm and right leg. Fractured vertebrae, Other Musculoskeletal History - cervical fusion Denies: Hx Arthritis, Hx Rheumatoid Arthritis, Hx Osteoporosis Sensory History: Reports: Hx Contacts or Glasses Denies: Hx Hearing Aid, Other Sensory Impairments Opthamlomology History: Reports: Hx Contacts or Glasses Denies: Other Sensory Impairments Neurological History: Reports: Hx Headaches - OCCASIONAL, Hx Migraine - no longer has migraines, Hx Seizures, Other Neuro Impairments/Disorders - BRAIN ANEURSYM - 2006 Psychiatric History: Reports: Hx Anxiety, Hx Depression - PAST SUICIDE ATTEMPTS , Hx Inpatient Treatment, Hx Suicide Attempt - 06/2015 with [facility] admit, Hx Substance Abuse - 1981 tried cocaine Denies: Hx Eating Disorder, Hx Panic Disorder, Hx of Violent Episodes Against Others, Other Psychiatric Issues/Disorders - Cancer History Hx Chemotherapy: No - iv antibiotic therapy at home Hx Radiation Therapy: No - Surgical History Surgery Procedure, Year, and Place: 2006 BRAIN ANEURSYM REPAIRED/CRANIOTOMY [facility] ANEURYSM CLIP OK FOR 1.5 PER SAFETY [facility]. 2011 ORIF LEFT [place] [facility]. 1994 RIGHT LEG/ANKLE FX [facility] 01/2013 REMOVAL OF HARDWARE LEFT ELBOW ; [facility] FOR DIALYSIS 06/2016. [address] [facility], [address] [facility] [address] [place] TONSIL[place]OMY A CHILD [facility] [address] [facility] 2006 KIDNEY STONES [facility]. 2006 R [place]OPHERECTOMY [place]. [address] [facility]. 01/2013 TRAC[address], [facility] ( CLOSED PRESENTLY-2016). 2013 CYSTO, LITHO [facility]. 2012 L ARM FISTULA X3 [facility]. 2017 bilatereal nephrectomy. LEFT ARMPIT AREA CLIP FROM BIOPSY Hx Anesthesia Reactions: No Infectious Disease History: No Infectious Disease History: Reports: Hx of Known/Suspected MRSA - lungs - 13 yrs ago Denies: History Other Infectious Disease, Traveled Outside the [place] in Last 30 Days - Family History Known Family History: Positive: Renal Disease - polycystic kidney - Social History Alcohol Use: None Hx Substance Use: Yes Substance Use Type: Reports: None Substance Use Comment - Amount & Last Used: HX ETOH AND DRUG ABUSE, takes morphine and oxycodone, overdose 06/2015 Hx Tobacco Use: Yes Smoking Status (MU): Light Every Day Tobacco Smoker Type: Cigarettes Amount Used/How Often: VERY RARELY Length of Time of Smoking/Using Tobacco: 15 YRS Have You Smoked in the Last Year: Yes Review of Systems Positive: Shortness Of Breath Positive: Nausea. Negative: Vomiting Positive: Arthralgia, Myalgia Neurological: Other - Confusion All Other Systems Reviewed And Are Negative: Yes Physical Exam - Summary Physical Exam Summary: VITAL SIGNS: Reviewed. GENERAL: ~Patient is a well-developed and nourished female who is lying comfortable in the stretcher. Patient is not in any acute respiratory distress. HEAD AND FACE: No signs of trauma. No ecchymosis, hematomas or skull depressions. No sinus tenderness. EYES: PERRLA, EOMI x 2, No injected conjunctiva, no nystagmus. EARS: Hearing grossly intact. Ear canals and tympanic membranes are within normal limits. MOUTH: Oropharynx within normal limits. NECK: Supple, trachea is midline, no adenopathy, no JVD, no carotid bruit, no c- spine tenderness, neck with full ROM. CHEST: Symmetric, no tenderness at palpation LUNGS: Clear to auscultation bilaterally. No wheezing or crackles. CVS: Regular rate and rhythm, S1 and S2 present, no murmurs or gallops appreciated. ABDOMEN: Soft, non-tender. No signs of distention. No rebound no guarding, and no masses palpated. Bowel sounds are normal. Peritoneal dialysis catheter in the subumbilical area. EXTREMITIES: FROM in all major joints, no edema, no cyanosis or clubbing. NEURO: Alert and oriented x 3. No acute neurological deficits. Speech is normal and follows commands. SKIN: Dry and warm Triage Information Reviewed: Yes Vital Signs On Initial Exam: Initial Vitals Temp Pulse Resp BP Pulse Ox 98.6 F 97 12 137/73 100 03/04/18 06:00 03/04/18 06:00 03/04/18 06:00 03/04/18 06:00 03/04/18 06:00 Vital Signs Reviewed: Yes Diagnostics - Vital Signs Vital Signs Temp Pulse Resp BP Pulse Ox 03/04/18 06:00 98.6 F 97 12 137/73 100 - Laboratory Lab Statement: Any lab studies that have been ordered have been reviewed, and results considered in the medical decision making process. Complex Multi-Symp Course/Dx Assessment/Plan: Pt is a 57 y/o F BIBA who presents to ED c/o suspected adverse effects from a bug spray. Pt reports that on 03/01 (3 days ago) she sprayed her mobile home using an indoor disinfectant to treat beetles. States she lightly sprayed the entire house, though heavily sprayed her bedroom. States that she has been sleeping with her bedroom door closed and that she has been leaving the house over the last 3 days, reporting she believes the symptoms improve when not home. Pt c/o myalgias, arthralgias, nausea, confusion and SOB. Associated pain is currently moderate, ranked 5/10. Denies any vomiting. Reports she read the label on the bottle and does not recall any warnings for such symptoms. Pt said that she feels better, wanted to leave the hospital. Discussed with her the risk of leaving which included possible toxicity from this insecticide, possible abnormal electrolytes that could cause permanent disability and . She still wanted to go. She will be signing out AMA. - Diagnoses Provider Diagnoses: Nausea, Chemical exposure Discharge - Sign-Out/Discharge Documenting (check all that apply): Discharge - AMA - Discharge Plan Condition: Stable Disposition: AGAINST MEDICAL ADVICE Referrals: Dimitry Oleary MD [Primary Care Provider] - The documentation as recorded by the Sabra hernandez Rebecca accurately reflects the service I personally performed and the decisions made by me, Herbert Adams MD.
== END 2018-03-04 06:47 | disposition left against medical advice (07) ==
LOC: ED 05:57
DX: R11.0 Nausea (principal); Z77.098 Contact with and (suspected) exposure to other hazardous, chiefly nonmedicinal, chemicals; F17.210 Nicotine dependence, cigarettes, uncomplicated; E07.9 Disorder of thyroid, unspecified; E78.00 Pure hypercholesterolemia, unspecified; I10 Essential (primary) hypertension; I34.8 Other nonrheumatic mitral valve disorders
CPT/HCPCS: 99282